=== PATIENT | male | born 1940 | race African-American/Black ===

== ENCOUNTER 2016-06-13 13:36 | Outpatient (CLI) ==
[2015-10-24 19:44] VITALS: BMI 33.3
== END 2016-06-13 13:37 | disposition home or self-care (01) ==
LOC: NONPT 13:36
PROVIDERS: ATTEND Family Medicine
DX: J02.9 Acute pharyngitis, unspecified (principal)
CPT/HCPCS: 87651; 87880

== ENCOUNTER 2016-10-13 16:49 | Outpatient (CLI) ==
[2015-10-24 19:44] VITALS: BMI 33.3
== END 2016-10-13 16:50 | disposition home or self-care (01) ==
LOC: NONPT 16:49
PROVIDERS: ATTEND Family Medicine
DX: S91.001A Unspecified open wound, right ankle, initial encounter (principal); S81.801A Unspecified open wound, right lower leg, initial encounter
CPT/HCPCS: 87070; 87186

== ENCOUNTER 2016-11-09 07:42 | Outpatient (CLI) ==
[2015-10-24 19:44] VITALS: BMI 33.3
== END 2016-11-09 07:43 ==
LOC: AMBL 07:42
PROVIDERS: ATTEND Internal Medicine
DX: R29.810 Facial weakness (principal); R53.1 Weakness; R40.4 Transient alteration of awareness; E11.9 Type 2 diabetes mellitus without complications; I10 Essential (primary) hypertension

== ENCOUNTER 2016-11-12 09:34 | Outpatient (CLI) ==
[2015-10-24 19:44] VITALS: BMI 33.3
== END 2016-11-12 09:35 ==
LOC: AMBL 09:34
PROVIDERS: ATTEND Emergency Medicine
DX: K59.00 Constipation, unspecified (principal); I10 Essential (primary) hypertension; Z98.890 Other specified postprocedural states; Z74.01 Bed confinement status

== ENCOUNTER 2016-11-12 21:18 | Outpatient (CLI) ==
[2015-10-24 19:44] VITALS: BMI 33.3
== END 2016-11-12 21:19 ==
LOC: AMBL 21:18
PROVIDERS: ATTEND Family Medicine
DX: K59.00 Constipation, unspecified (principal)

== ENCOUNTER 2016-11-13 14:50 | Outpatient (CLI) | payer OTHER ==
[2015-10-24 19:44] VITALS: BMI 33.3
== END 2016-11-13 14:51 | disposition home or self-care (01) ==
LOC: AMBL 14:50
PROVIDERS: ATTEND Emergency Medicine
DX: R53.1 Weakness (principal); R53.83 Other fatigue; E11.9 Type 2 diabetes mellitus without complications; G89.18 Other acute postprocedural pain; Z98.890 Other specified postprocedural states

== ENCOUNTER 2016-11-14 07:39 | Outpatient (CLI) ==
[2015-10-24 19:44] VITALS: BMI 33.3
== END 2016-11-14 07:40 ==
LOC: AMBL 07:39
PROVIDERS: ATTEND Emergency Medicine
DX: R41.82 Altered mental status, unspecified (principal); R03.0 Elevated blood-pressure reading, without diagnosis of hypertension; R53.1 Weakness; Z90.89 Acquired absence of other organs; Z98.890 Other specified postprocedural states

== ENCOUNTER 2016-11-14 14:10 | Outpatient (CLI) ==
[2015-10-24 19:44] VITALS: BMI 33.3
== END 2016-11-14 14:11 ==
LOC: AMBL 14:10
PROVIDERS: ATTEND Emergency Medicine
DX: R52 Pain, unspecified (principal); R53.1 Weakness

== ENCOUNTER 2016-11-15 15:12 | Outpatient (CLI) ==
[2015-10-24 19:44] VITALS: BMI 33.3
== END 2016-11-15 15:13 ==
LOC: AMBL 15:12
PROVIDERS: ATTEND Internal Medicine
DX: R40.4 Transient alteration of awareness (principal); R40.2431 Glasgow coma scale score 3-8, in the field [EMT or ambulance]; R41.0 Disorientation, unspecified; R06.9 Unspecified abnormalities of breathing

== ENCOUNTER 2016-12-24 10:11 | Outpatient (CLI) ==
[2015-10-24 19:44] VITALS: BMI 33.3
== END 2016-12-24 10:12 | disposition short-term general hospital (02) ==
LOC: AMBL 10:11
PROVIDERS: ATTEND Internal Medicine Geriatric Medicine
DX: R11.10 Vomiting, unspecified (principal); R10.9 Unspecified abdominal pain; E11.9 Type 2 diabetes mellitus without complications; I10 Essential (primary) hypertension; E78.5 Hyperlipidemia, unspecified; G89.29 Other chronic pain; Z89.512 Acquired absence of left leg below knee

== ENCOUNTER 2017-01-03 10:40 | Outpatient (CLI) ==
[2015-10-24 19:44] VITALS: BMI 33.3
== END 2017-01-03 10:41 | disposition home or self-care (01) ==
LOC: AMBL 10:40
PROVIDERS: ATTEND Emergency Medicine
DX: R11.10 Vomiting, unspecified (principal); Z98.890 Other specified postprocedural states

== ENCOUNTER 2017-01-04 10:08 | Outpatient (CLI) | payer OTHER ==
[2015-10-24 19:44] VITALS: BMI 33.3
[2017-01-04 10:29] LABS: BILIRUBIN,URINE 2+ (NEGATIVE); KETONES,URINE Trace (NEGATIVE); LEUKOCYTE ESTERASE ,URINE 1+ (NEGATIVE); NITRITE,URINE Negative (NEGATIVE); PROTEIN,URINE 2+ (NEGATIVE); URINE, BLOOD 3+ (NEGATIVE)
[2017-01-04 10:32] LABS: ADD URINE MICROSCOPIC YES
[2017-01-04 10:33] LABS: BACTERIA,URINE 3+ (NOT PRESENT)
== END 2017-01-04 10:09 | disposition home or self-care (01) ==
LOC: NONPT 10:08
PROVIDERS: ATTEND Family Medicine
DX: R82.90 Unspecified abnormal findings in urine (principal)
CPT/HCPCS: 81001; 87086

== ENCOUNTER 2017-02-02 11:43 | Outpatient (CLI) | payer OTHER ==
[2015-10-24 19:44] VITALS: BMI 33.3
[2017-02-02 11:59] LABS: BILIRUBIN,URINE NEGATIVE (NEGATIVE); KETONES,URINE NEGATIVE (NEGATIVE); NITRITE,URINE NEGATIVE (NEGATIVE); PH,URINE 5.5 (5-9); PROTEIN,URINE 1+ (NEGATIVE); URINE, BLOOD NEGATIVE (NEGATIVE)
[2017-02-02 12:00] LABS: ADD URINE MICROSCOPIC YES; LEUKOCYTE ESTERASE ,URINE NEGATIVE (NEGATIVE)
[2017-02-02 12:01] LABS: BACTERIA,URINE 2+ (NOT PRESENT); GRANULAR CASTS,URINE 0-2 (NOT PRESENT)
== END 2017-02-02 11:44 | disposition home or self-care (01) ==
LOC: NONPT 11:43
PROVIDERS: ATTEND Family Medicine
DX: N39.0 Urinary tract infection, site not specified (principal)
CPT/HCPCS: 81001; 87086

== ENCOUNTER 2017-08-02 10:46 | Outpatient (CLI) ==
[2015-10-24 19:44] VITALS: BMI 33.3
== END 2017-08-02 10:47 | disposition short-term general hospital (02) ==
LOC: AMBL 10:46
PROVIDERS: ATTEND Internal Medicine
DX: R53.81 Other malaise (principal); E11.9 Type 2 diabetes mellitus without complications; I10 Essential (primary) hypertension

== ENCOUNTER 2017-08-14 04:52 | Outpatient (CLI) ==
[2015-10-24 19:44] VITALS: BMI 33.3
== END 2017-08-14 04:53 | disposition short-term general hospital (02) ==
LOC: AMBL 04:52
PROVIDERS: ATTEND Family Medicine
DX: R41.82 Altered mental status, unspecified (principal); R53.83 Other fatigue; R06.9 Unspecified abnormalities of breathing; R06.2 Wheezing; R60.0 Localized edema; I48.91 Unspecified atrial fibrillation; R00.0 Tachycardia, unspecified; E11.9 Type 2 diabetes mellitus without complications

== ENCOUNTER 2017-10-24 08:47 | Outpatient (CLI) | payer OTHER ==
[2015-10-24 19:44] VITALS: BMI 33.3
== END 2017-10-24 08:48 | disposition home or self-care (01) ==
LOC: NONPT 08:47
PROVIDERS: ATTEND Family Medicine
DX: R30.0 Dysuria (principal); R35.0 Frequency of micturition
CPT/HCPCS: 81001; 87086; 87186

== ENCOUNTER 2017-11-20 07:57 | Outpatient (CLI) ==
[2015-10-24 19:44] VITALS: BMI 33.3
== END 2017-11-20 07:58 | disposition home or self-care (01) ==
LOC: NONPT 07:57
PROVIDERS: ATTEND Family Medicine
DX: N39.0 Urinary tract infection, site not specified (principal)
CPT/HCPCS: 81001

== ENCOUNTER 2018-05-25 13:10 | Outpatient (CLI) | payer OTHER ==
[2015-10-24 19:44] VITALS: BMI 33.3
--- NOTE | 2018-05-25 14:33 | CT ---
EXAM: CT sinuses without contrast HISTORY: Abnormal x-ray COMPARISON: 09/18/2012 TECHNIQUE: CT sinuses performed without contrast. Coronal and sagittal reformatted images obtained. FINDINGS: Mastoid air cells clear. Temporal mandibular joints normally aligned. No fracture. Glob es and retrobulbar structures unremarkable. Atherosclerotic calcifications carotid arteries. 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 Degenerative c hange in the spine. Periapical lucency surrounding a right posterior maxillary tooth. Multiple miss ing teeth. Mild mucosal thickening maxillary sinuses with areas of polypoid mucosal thickening may r epresent mucus retention cysts or polyps. Prior bilateral maxillary antrostomy that is occluded on t he right and patent on the left. Bilateral middle turbinates appear to have been resected. Moderate mucosal thickening ethmoid air cells. Mild mucosal thickening frontal sinuses with small area of po lypoid mucosal thickening may represent mucus retention cyst. Sphenoid sinuses clear. No air-fluid levels in paranasal sinuses. Nasal septum near midline. IMPRESSION: 1. Sinusitis/sinus mucosal changes as described. Prior sinus surgery with bilateral maxillary antro stomy that appears occluded on the right. 2. Periapical lucency surrounding a right posterior maxillary tooth, suggesting periodontal disease. Multiple missing teeth. Recommend correlation with dental examination
== END 2018-05-25 13:11 | disposition home or self-care (01) ==
LOC: RAD 13:10
PROVIDERS: ATTEND Nurse Practitioner Family
DX: R93.0 Abnormal findings on diagnostic imaging of skull and head, not elsewhere classified (principal)

== ENCOUNTER 2018-08-09 17:08 | Outpatient (CLI) ==
[2015-10-24 19:44] VITALS: BMI 33.3
== END 2018-08-09 17:09 | disposition home or self-care (01) ==
LOC: LAB 17:08
PROVIDERS: ATTEND Nurse Practitioner Family
DX: S91.001A Unspecified open wound, right ankle, initial encounter (principal); S81.801A Unspecified open wound, right lower leg, initial encounter
CPT/HCPCS: 87070; 87186

== ENCOUNTER 2018-10-02 10:12 | Outpatient (CLI) ==
[2015-10-24 19:44] VITALS: BMI 33.3
== END 2018-10-02 10:13 | disposition home or self-care (01) ==
LOC: NONPT 10:12
PROVIDERS: ATTEND Family Medicine
DX: S91.001A Unspecified open wound, right ankle, initial encounter (principal)
CPT/HCPCS: 87070